=== PATIENT | male | born 1970 | race African-American/Black ===

== ENCOUNTER 2022-04-16 08:11 | Day surgery (SDC) | payer OTHER ==
[~2022-04-16] VITALS: Ht 175.3 cm; Wt 91.5 kg
[~2022-04-16 08:11] MED LIST: NS 1,000 ML IV ONE; VITA100093 PO; VITMTA PO
[2022-04-16] MEDS ORDERED: propofoL 200 MG/20 ML VIAL As Ordered ONE (09:34)
[2022-04-16] MEDS ORDERED: LIDOCAINE 2% 100MG/5ML SDV (FOR ANES.) As Ordered ONE (09:34)
[2022-04-16 10:16] VITALS: BP 119/71
== END 2022-04-16 10:45 | disposition home or self-care (01) ==
LOC: M OPP 08:11
PROVIDERS: ATTEND Internal Medicine Gastroenterology
DX: Z12.11 Encounter for screening for malignant neoplasm of colon (principal); K64.0 First degree hemorrhoids; Z88.8 Allergy status to other drugs, medicaments and biological substances